=== PATIENT | male | born 1980 | race African-American/Black ===

== ENCOUNTER 2016-10-19 11:36 | Emergency (ER) | payer MEDICAID ==
[~2016-10-19] VITALS: Ht 180.3 cm; Wt 146.5 kg
[~2016-10-19 11:36] MED LIST: GABA-536; HYDR-3326; LAMO25TA2; QUET25TA
--- NOTE | 2016-10-19 11:40 | NUR ---
BB SELF; "DARK URINE", DENIES DYSURIA, LOWER ABD PAIN "2 DAYS AGO RECEIVED FELLATIO, I THINKS ITS RELATED" AWAITING MD ORDER
--- NOTE | 2016-10-19 11:48 | NUR ---
URINE SAMPLE COLLECTED SENT TO LAB
[2016-10-19 12:15] LABS: APPEARANCE,URINE Cloudy (CLEAR); BILIRUBIN,URINE LARGE (NEGATIVE); BLOOD, URINE Large Ery/uL (NEGATIVE); COLOR,URINE Red (YELLOW); KETONES,URINE 15 (NEGATIVE); LEUKOCYTE ESTERASE ,URINE Large (NEGATIVE); NITRITE, URINE Positive (NEGATIVE); PROTEIN,URINE >=300 mg/dl (NEGATIVE); UGLUCOSE Negative (NEGATIVE)
[2016-10-19 12:24] LABS: BACTERIA,URINE None seen /HPF (None Seen); RBC,URINE TOO NUMEROUS TO COUN /HPF (0-2); SQUAMOUS EPITHELIAL CELL,UR Rare /HPF (None Seen); WBC,URINE 0-2 /HPF (0-3)
[2016-10-19 12:38] VITALS: BP 176/103
== END 2016-10-19 12:38 | disposition home or self-care (01) ==
LOC: ER 11:38
DX: N39.0 Urinary tract infection, site not specified (principal); F32.9 Major depressive disorder, single episode, unspecified; F41.9 Anxiety disorder, unspecified; F17.200 Nicotine dependence, unspecified, uncomplicated; Z88.6 Allergy status to analgesic agent
CPT/HCPCS: 81000-TC; A4606; Z7610

== ENCOUNTER 2017-01-11 14:16 | Emergency (ER) | payer MEDICAID ==
[~2017-01-11] VITALS: Ht 180.3 cm; Wt 138.8 kg
[2017-01-11 14:23] VITALS: BP 178/103
--- NOTE | 2017-01-11 14:46 | NUR ---
PATIENT NOT IN WAITING ROOM
== END 2017-01-11 15:10 | disposition left against medical advice (07) ==
LOC: ER 14:18
DX: Z53.21 Procedure and treatment not carried out due to patient leaving prior to being seen by health care provider (principal)
CPT/HCPCS: A4606; Z7610

== ENCOUNTER 2017-01-11 21:17 | Emergency (ER) | payer MEDICAID ==
[~2017-01-11] VITALS: Ht 177.8 cm; Wt 138.8 kg
[2017-01-11 21:45] VITALS: BP 171/92
== END 2017-01-11 23:41 | disposition home or self-care (01) ==
LOC: ER 21:22
DX: S80.01XA Contusion of right knee, initial encounter (principal); S80.02XA Contusion of left knee, initial encounter; F31.9 Bipolar disorder, unspecified; I10 Essential (primary) hypertension; F17.200 Nicotine dependence, unspecified, uncomplicated; Z88.6 Allergy status to analgesic agent; W19.XXXA Unspecified fall, initial encounter; Y93.02 Activity, running; Y92.89 Other specified places as the place of occurrence of the external cause; Y99.8 Other external cause status
CPT/HCPCS: 73564-TC; A4606; Z7610

== ENCOUNTER 2017-11-07 22:40 | Emergency (ER) | payer MEDICAID ==
[~2017-11-07] VITALS: Ht 180.3 cm; Wt 120.2 kg
[~2017-11-07 22:40] MED LIST changes: -HYDR-3326; +HYDR-3974; +LAMO25TA16; -LAMO25TA2
[2017-11-07 22:49] VITALS: BP 137/86
[2017-11-07] MEDS ORDERED: KETOROLAC TROMETHAMINE INJ 30 MG/ML VIAL ONE (23:00)
[2017-11-07] MEDS ORDERED: KETOROLAC TROMETHAMINE INJ 60 MG/2 ML VIAL IM ONE (23:00)
== END 2017-11-07 23:22 | disposition home or self-care (01) ==
LOC: ER 22:40
DX: S39.012A Strain of muscle, fascia and tendon of lower back, initial encounter (principal); I10 Essential (primary) hypertension; F41.9 Anxiety disorder, unspecified; F32.9 Major depressive disorder, single episode, unspecified; Z88.6 Allergy status to analgesic agent; X58.XXXA Exposure to other specified factors, initial encounter; Y93.89 Activity, other specified; Y92.89 Other specified places as the place of occurrence of the external cause; Y99.8 Other external cause status
CPT/HCPCS: A4606; J1885; Z7610

== ENCOUNTER 2017-11-13 11:24 | Emergency (ER) | payer MEDICAID ==
[~2017-11-13] VITALS: Ht 154.9 cm; Wt 122.5 kg
--- NOTE | 2017-11-13 11:40 | NUR ---
pt ambulatory to er bed 14. c/o sob, appears anxious. pt admits to drinking alcohol and smoking marijuana last night. states took xanax w/ no relief. gowned and placed o monitor. hypertensive otherwise stable vitals. awaiting md waldron.
[2017-11-13] MEDS ORDERED: LORAZEPAM 1 MG TABLET ONE (12:21)
[2017-11-13] MEDS ORDERED: LORAZEPAM 1 MG TABLET PO ONE (12:30)
[2017-11-13 13:24] VITALS: BP 162/99
--- NOTE | 2017-11-13 13:24 | NUR ---
Patient discharged to home in stable condition. Written and verbal after care instructions given. Patient verbalizes understanding of instruction.
== END 2017-11-13 13:25 | disposition home or self-care (01) ==
LOC: ER 11:28
DX: F41.9 Anxiety disorder, unspecified (principal); I10 Essential (primary) hypertension; F32.9 Major depressive disorder, single episode, unspecified; F17.200 Nicotine dependence, unspecified, uncomplicated; Z88.6 Allergy status to analgesic agent
CPT/HCPCS: A4606; Z7610

== ENCOUNTER 2018-03-18 03:04 | Emergency (ER) | payer MEDICAID ==
--- NOTE | 2018-03-18 03:19 | NUR ---
CALLED PT'S NAME THREE TIMES, NO REPONSE. WILL TRY AGAIN AT A LATER TIME
--- NOTE | 2018-03-18 04:23 | NUR ---
CALLED PT'S NAME THREE TIMES, NO REPONSE. WILL TRY AGAIN AT A LATER TIME
--- NOTE | 2018-03-18 05:22 | NUR ---
CALLED PT'S NAME THREE TIMES, NO REPONSE. WILL TRY AGAIN AT A LATER TIME. PT LEFT BEFORE BEING TRIAGED.
== END 2018-03-18 05:24 | disposition left against medical advice (07) ==
LOC: ER 03:11
DX: Z53.21 Procedure and treatment not carried out due to patient leaving prior to being seen by health care provider (principal)

== ENCOUNTER 2018-05-26 11:52 | Emergency (ER) | payer SELFPAY ==
[~2018-05-26] VITALS: Ht 177.8 cm; Wt 109.8 kg
[2018-05-26 11:52] VITALS: BP 155/78
== END 2018-05-26 12:56 | disposition home or self-care (01) ==
LOC: ER 11:53
DX: L73.9 Follicular disorder, unspecified (principal); F41.9 Anxiety disorder, unspecified; I10 Essential (primary) hypertension; F32.9 Major depressive disorder, single episode, unspecified; F17.200 Nicotine dependence, unspecified, uncomplicated; Z88.6 Allergy status to analgesic agent; Z79.899 Other long term (current) drug therapy
CPT/HCPCS: 99283; A4606

== ENCOUNTER 2018-12-10 16:49 | Emergency (ER) | payer MEDICAID ==
[~2018-12-10] VITALS: Ht 177.8 cm; Wt 104.8 kg
[2018-12-10 17:04] VITALS: BP 155/86
--- NOTE | 2018-12-10 17:13 | NUR ---
URINE SPECIMEN COLLECTED AND SENT TO LAB.
--- NOTE | 2018-12-10 17:23 | NUR ---
SEEN AND EXAMINED BY .
[2018-12-10] MEDS ORDERED: IBUPROFEN 600 MG TABLET PO ONE (17:24)
--- NOTE | 2018-12-10 17:25 | NUR ---
MOTRIN 600MG PO GIVEN VERBAL ORDERED BY
[2018-12-10] MEDS ORDERED: ACETAMINOPHEN 325 MG TABLET PO ONE (17:30)
[2018-12-10] MEDS ORDERED: IBUPROFEN 400 MG TABLET PO ONE (18:00)
--- NOTE | 2018-12-10 18:20 | NUR ---
TECH AT BEDSIDE FOR US.
== END 2018-12-10 19:21 | disposition home or self-care (01) ==
LOC: ER 16:49
DX: R10.32 Left lower quadrant pain (principal); R10.31 Right lower quadrant pain; I10 Essential (primary) hypertension; F41.9 Anxiety disorder, unspecified; F31.9 Bipolar disorder, unspecified; F17.200 Nicotine dependence, unspecified, uncomplicated; Z88.6 Allergy status to analgesic agent
CPT/HCPCS: 76870-TC

== ENCOUNTER 2019-04-17 22:05 | Emergency (ER) | payer MEDICAID ==
[~2019-04-17] VITALS: Ht 177.8 cm; Wt 99.8 kg
[2019-04-17 22:09] VITALS: BP 136/95
--- NOTE | 2019-04-17 22:30 | NUR ---
BIBSELF FROM HOME TO ER BED 11. AAOX4. NO RESP DISTRESS NOTED. AMBULATORY. C/O COUGH. PT REPORTS THAT COUGHING STARTED THIS MORNING. COUGH NOTED NON PRODUCTIVE. MD AT BEDSIDE EVAL. ORDERS RECEIVED, NOTED AND CARRIED OUT. FLU SWAB DONE AND SENT TO LAB. XRAY AT BEDSIDE.
--- NOTE | 2019-04-17 23:15 | NUR ---
Patient discharged to home in stable condition. Written and verbal after care instructions given. Patient verbalizes understanding of instruction. Pt ambulatory with a steady gait
== END 2019-04-17 23:16 | disposition home or self-care (01) ==
LOC: ER 22:10
DX: B34.9 Viral infection, unspecified (principal); I10 Essential (primary) hypertension; F17.200 Nicotine dependence, unspecified, uncomplicated; Z88.6 Allergy status to analgesic agent; Z79.899 Other long term (current) drug therapy
CPT/HCPCS: 71046

== ENCOUNTER 2019-10-23 06:06 | Emergency (ER) | payer MEDICAID ==
[~2019-10-23] VITALS: Ht 180.3 cm; Wt 97.5 kg
--- NOTE | 2019-10-23 06:15 | NUR ---
PT PRESENTED TO THE ER WITH A C/O LOWER ABD PAIN, LT GROIN PAIN (HX OF HERNIA) AND HEMATURIA X 3 DAYS. PT GAVE A URINE SAMPLE AND THEN AMBULATED TO ER 4 WITH A SLOW STEADY GAIT. PT CHANGED INTO A GOWN AND WAS PLACED ON THE MONITOR AND CONTINUOUS PULSE OX.
--- NOTE | 2019-10-23 06:18 | NUR ---
DR LINARES IS AT THE BEDSIDE.
--- NOTE | 2019-10-23 06:25 | NUR ---
PT REC'D WARM BLANKETS AND APPEARS TO BE RESTING COMFORTABLY. WILL CONTINUE TO MONITOR THE PT.
[2019-10-23 06:47] LABS: APPEARANCE,URINE CLEAR (CLEAR); BILIRUBIN,URINE SMALL (NEGATIVE); BLOOD, URINE LARGE Ery/uL (NEGATIVE); COLOR,URINE AMBER (YELLOW); KETONES,URINE NEGATIVE (NEGATIVE); LEUKOCYTE ESTERASE ,URINE SMALL (NEGATIVE); NITRITE, URINE POSITIVE (NEGATIVE); PROTEIN,URINE 30 mg/dl (NEGATIVE); UGLUCOSE NEGATIVE (NEGATIVE)
--- NOTE | 2019-10-23 07:16 | NUR ---
Patient discharged to home in stable condition. Written and verbal after care instructions given. Patient verbalizes understanding of instruction and Rx. Pt took 2 [place] [employer] and was asking for more pain medication prior to discharge. MD aware, no new orders given. Pt ambulated out with a steady gait. VSS. NAD noted.
[2019-10-23 07:17] VITALS: BP 127/87
[2019-10-23 07:38] LABS: BACTERIA,URINE Rare /HPF (None Seen); RBC,URINE TOO NUMEROUS TO COUN /HPF (0-2); SQUAMOUS EPITHELIAL CELL,UR 0-2 /HPF (None Seen)
== END 2019-10-23 07:18 | disposition home or self-care (01) ==
LOC: ER 06:08
DX: R31.9 Hematuria, unspecified (principal); K40.90 Unilateral inguinal hernia, without obstruction or gangrene, not specified as recurrent; I10 Essential (primary) hypertension; F32.9 Major depressive disorder, single episode, unspecified; F17.200 Nicotine dependence, unspecified, uncomplicated; F41.9 Anxiety disorder, unspecified; Z88.6 Allergy status to analgesic agent; Z79.899 Other long term (current) drug therapy
CPT/HCPCS: 81000-TC; 87086-TC

== ENCOUNTER 2019-10-24 21:05 | Emergency (ER) | payer MEDICAID ==
[~2019-10-24] VITALS: Ht 177.8 cm; Wt 97.5 kg
--- NOTE | 2019-10-24 21:29 | NUR ---
PT AAOX4. AMBUYALTORY WITH STEADY GAIT. BIBS FOR C/O LLQ AND L TESTICLE PAIN. HAD HERNIA SX TODAY AT 1400. PLACED ON MONITOR AND PULSE OX. VSS. AWAITING MD FOR EVAL.
[2019-10-24] MEDS ORDERED: ACETAMINOPHEN ES 500 MG TABLET ONE (21:41)
--- NOTE | 2019-10-24 21:44 | NUR ---
US AT BEDSIDE
[2019-10-24 21:49] LABS: BASOPHILS # (AUTO) 0.1 /CMM (0.0-0.2); BASOPHILS % (AUTO) 0.3 % (0.0-2.0); HEMATOCRIT 44 % (39-51); HEMOGLOBIN 14.5 g/dL (13.5-17.5); LYMPHOCYTES # (AUTO) 0.5 /CMM (0.8-4.8); LYMPHOCYTES % (AUTO) 2.7 % (20.0-44.0); MEAN CORPUSCULAR HGB CONC 33 g/dl (31.0-36.0); MEAN CORPUSCULAR VOLUME 101 fL (80-96); MONOCYTES % (AUTO) 5.4 % (2.0-12.0); NEUTROPHILS # (AUTO) 16.4 /CMM (1.8-8.9); NEUTROPHILS % (AUTO) 91.6 % (43.0-81.0); PLATELET COUNT (AUTO) 204 /CMM (150-450); RED BLOOD CELL COUNT(AUTO) 4.33 MIL/uL (4.5-6.0); WHITE BLOOD COUNT (AUTO) 17.9 K/uL (4.3-11.0)
[2019-10-24 21:59] LABS: CALCIUM, SERUM 8.7 mg/dL (8.5-10.1); CREATININE 0.8 mg/dL (0.6-1.3); POTASSIUM 4.1 mmol/L (3.5-5.1)
[2019-10-24] MEDS ORDERED: ACETAMINOPHEN 325 MG TABLET PO ONE (22:00)
[2019-10-24] MEDS ORDERED: AZITHROMYCIN 250 MG TABLET PO ONE (22:30)
[2019-10-24] MEDS ORDERED: CEFTRIAXONE 500 MG VIAL IM ONE (22:30)
[2019-10-24] MEDS ORDERED: AZITHROMYCIN 250 MG TABLET ONE (22:36)
[2019-10-24] MEDS ORDERED: CEFTRIAXONE 500 MG VIAL ONE (22:36)
[2019-10-24] MEDS ORDERED: LIDOCAINE /MPF 1% VIAL 5 ML VIAL ONE (22:37)
--- NOTE | 2019-10-24 22:46 | NUR ---
Patient discharged to home in stable condition. Written and verbal after care instructions given. Patient verbalizes understanding of instruction and RX. Pt ambulated with steady gait. vss.
--- NOTE | 2019-10-24 22:46 | NUR ---
URINE COLLECTED AND SENT TO LAB
[2019-10-24 22:47] VITALS: BP 129/79
== END 2019-10-24 22:47 | disposition home or self-care (01) ==
LOC: ER 21:08
DX: N45.1 Epididymitis (principal); I10 Essential (primary) hypertension; J45.909 Unspecified asthma, uncomplicated; Z88.6 Allergy status to analgesic agent; Z79.899 Other long term (current) drug therapy; Z48.89 Encounter for other specified surgical aftercare
CPT/HCPCS: 36415; 76870; 80048; 85025; 87491; 87591; 96372; 99284; J0696; J3490

== ENCOUNTER 2023-12-31 13:15 | Emergency (ER) | payer MEDICAID ==
[~2023-12-31] VITALS: Ht 180.3 cm; Wt 150.6 kg
[2023-12-31] MEDS ORDERED: METOPROLOL TARTRATE INJ 5 MG/5 ML AMPUL ONE ×3 (14:15→15:30)
[2023-12-31 14:17] LABS: BASOPHILS # (AUTO) 0.1 K/uL (0.0-0.2); BASOPHILS % (AUTO) 1.2 % (0.0-2.0); EOSINOPHILS # (AUTO) 0.2 K/uL (0.0-0.7); EOSINOPHILS % (AUTO) 1.7 % (0.0-6.0); HEMATOCRIT 44 % (39-51); HEMOGLOBIN 14.7 g/dL (13.5-17.5); LYMPHOCYTES # (AUTO) 2.9 K/uL (0.8-4.8); LYMPHOCYTES % (AUTO) 30.6 % (20.0-44.0); MEAN CORPUSCULAR HEMOGLOBIN 31 PG (26.0-33.0); MEAN CORPUSCULAR HGB CONC 33 g/dl (31.0-36.0); MEAN CORPUSCULAR VOLUME 91 fL (80-96); MONOCYTES % (AUTO) 10.3 % (2.0-12.0); NEUTROPHILS # (AUTO) 5.3 K/uL (1.8-8.9); NEUTROPHILS % (AUTO) 56.2 % (43.0-81.0); PLATELET COUNT (AUTO) 277 K/uL (150-450); RED BLOOD CELL COUNT(AUTO) 4.81 MIL/uL (4.5-6.0); RED CELL DISTRIBUTION WIDTH 15.1 % (11.5-15.0); WHITE BLOOD COUNT (AUTO) 9.5 K/uL (4.3-11.0)
[2023-12-31 14:24] LABS: MAGNESIUM 1.8 mg/dL (1.8-2.4)
[2023-12-31 14:26] LABS: CALCIUM, SERUM 8.8 mg/dL (8.5-10.1); CARBON DIOXIDE 27 mmol/L (21-32); CHLORIDE 107 mmol/L (98-107); GLUCOSE 105 mg/dL (74-106); POTASSIUM 4.2 mmol/L (3.5-5.1); SODIUM SERUM 140 mmol/L (136-145); UREA NITROGEN, BLOOD 8 mg/dL (7-18)
[2023-12-31] MEDS: METOPROLOL TARTRATE INJ 5 MG/5 ML AMPUL IVP ONE ×2 (14:31→15:03)
[2023-12-31 14:32] LABS: INR 0.97 (0.91-1.10); PARTIAL THROMBOPLASTIN TIME 28.4 SEC (24.3-34.3); PROTHROMBIN TIME 10.3 SECS (9.2-11.1)
[2023-12-31 14:38] LABS: THYROID STIMULATING HORMONE 0.93 uIU/mL (0.358-3.74)
[2023-12-31 14:39] LABS: NT-PRO BNP 354 pg/mL (0-125)
[2023-12-31] MEDS: Magnesium 1 GM/2 ML VIAL IV ONE (15:12)
[2023-12-31] MEDS ORDERED: METO25TA6 PO (15:32)
[2023-12-31] MEDS ORDERED: METOPROLOL TARTRATE 25 MG TABLET ONE (15:33)
[2023-12-31] MEDS: METOPROLOL TARTRATE 25 MG TABLET PO ONE (15:39)
[2023-12-31 16:44] VITALS: BP 136/89; TEMP 98.6; O2SAT 98
== END 2023-12-31 16:48 | disposition home or self-care (01) ==
LOC: ER 13:23
DX: I48.20 Chronic atrial fibrillation, unspecified (principal); I10 Essential (primary) hypertension; J45.909 Unspecified asthma, uncomplicated; F41.9 Anxiety disorder, unspecified; F31.9 Bipolar disorder, unspecified; F19.10 Other psychoactive substance abuse, uncomplicated; F17.200 Nicotine dependence, unspecified, uncomplicated; Z88.6 Allergy status to analgesic agent
CPT/HCPCS: 99285; 96374; 71045; 96375; 93005; 96376; 85025; 80048; 83735; 36415; 84443; 84484; 85730; 83880; J3475; J3490 ×3

== ENCOUNTER → 2025-02-02 | Emergency (ER) | payer MEDICAID ==
[~2025-02-02] VITALS: Ht 175.3 cm; Wt 147.4 kg
[~2025-02-02] MED LIST changes: +METO25TA6 PO
[2025-02-02 18:05] LABS: PLATELET COUNT (AUTO) 270 K/uL (150-450); RED BLOOD CELL COUNT(AUTO) 4.71 MIL/uL (4.5-6.0); RED CELL DISTRIBUTION WIDTH 15.3 % (11.5-15.0); WHITE BLOOD COUNT (AUTO) 9.0 K/uL (4.3-11.0)
[2025-02-02 18:11] LABS: CALCIUM, SERUM 8.8 mg/dL (8.5-10.1); CREATININE 1.2 mg/dL (0.6-1.3); SODIUM SERUM 139 mmol/L (136-145); UREA NITROGEN, BLOOD 10 mg/dL (7-18)
[2025-02-02 20:58] VITALS: BP 132/74; TEMP 97.9; O2SAT 99
== END | disposition home or self-care (01) ==
LOC: ER 17:13
DX: R07.89 Other chest pain (principal); R03.0 Elevated blood-pressure reading, without diagnosis of hypertension; R00.2 Palpitations; I11.9 Hypertensive heart disease without heart failure; F17.200 Nicotine dependence, unspecified, uncomplicated; E66.9 Obesity, unspecified; F31.9 Bipolar disorder, unspecified; I48.91 Unspecified atrial fibrillation; J45.909 Unspecified asthma, uncomplicated; Z79.899 Other long term (current) drug therapy; Z88.6 Allergy status to analgesic agent; Z68.42 Body mass index [BMI] 45.0-49.9, adult
CPT/HCPCS: 36415; 71045-TC; 80048-TC; 84484-TC; 85025-TC